=== PATIENT | female | born 1990 | race Caucasian/White ===

== ENCOUNTER 2017-09-12 21:55 | Emergency (ER) | payer OTHER ==
[~2017-09-12] VITALS: Ht 157.5 cm; Wt 59.0 kg
[2017-09-13] MEDS ORDERED: KETO10TA2 PO (00:38)
[2017-09-13] MEDS ORDERED: NORFLEX100MG PO (00:38)
== END 2017-09-13 00:54 | disposition home or self-care (01) ==
LOC: ER 21:55
DX: S30.0XXA Contusion of lower back and pelvis, initial encounter (principal); W18.39XA Other fall on same level, initial encounter; Y93.89 Activity, other specified; Y92.89 Other specified places as the place of occurrence of the external cause; Y99.8 Other external cause status

== ENCOUNTER 2018-04-05 19:31 | Emergency (ER) | payer OTHER ==
[~2018-04-05] VITALS: Ht 154.9 cm; Wt 59.0 kg
[~2018-04-05 19:31] MED LIST: KETO10TA2 PO; NORFLEX100MG PO
== END 2018-04-06 01:04 | disposition home or self-care (01) ==
LOC: ER 19:31
DX: J32.0 Chronic maxillary sinusitis (principal)